=== PATIENT | female | born 2000 | race American Indian/Alaskan Native ===

== ENCOUNTER 2019-10-25 21:53 | Emergency (ER) | payer SELFPAY ==
[2019-10-25 22:07] VITALS: BP 121/63
[2019-10-26] MEDS ORDERED: ACETAMINOPHEN 500 MG TAB PO ONE (05:22)
--- NOTE | 2019-10-26 05:27 | Emergency Department Report ---
- General Chief complaint: Skin/Abscess/Foreign Body Stated complaint: FOREIGN BODY RIGHT EAR Time Seen by Provider: 10/26/19 05:20 Source: patient Mode of arrival: Ambulatory Limitations: No Limitations - History of Present Illness Initial comments: Patient is a 19-year-old -[place] female who presents for foreign body to right earlobe. States she got a new earring piercing in 3 days ago began having pain and swelling 2 days ago and swelling causing earring post to be lodged in her earlobe. Requesting removal. There is no fevers or chills no tinnitus no decreased hearing. There is some mild ear swelling no drainage noted. Patient states pain is rated at 5/10 exacerbated by palpation. Pain is relieved by nothing tried. - Related Data Previous Rx's Medication Instructions Recorded Last Taken Type Cephalexin [Keflex] 500 mg PO BID #40 capsule 02/26/18 Unknown Rx Ibuprofen [Motrin 600 MG tab] 600 mg PO Q8H #15 tablet 02/26/18 Unknown Rx Acetaminophen [Tylenol] 650 mg PO QID PRN #30 capsule 10/26/19 Unknown Rx Mupirocin [Bactroban 2% OINT] 1 applic TP TID #1 tube 10/26/19 Unknown Rx Allergies Allergy/AdvReac Type Severity Reaction Status Date / Time No Known Allergies Allergy Verified 02/26/18 05:42 Abscess Boil HPI - HPI Chief Complaint: Skin/Abscess/Foreign Body Stated Complaint: FOREIGN BODY RIGHT EAR Time Seen by Provider: 10/26/19 05:20 Home Medications: Previous Rx's Medication Instructions Recorded Last Taken Type Cephalexin [Keflex] 500 mg PO BID #40 capsule 02/26/18 Unknown Rx Ibuprofen [Motrin 600 MG tab] 600 mg PO Q8H #15 tablet 02/26/18 Unknown Rx Acetaminophen [Tylenol] 650 mg PO QID PRN #30 capsule 10/26/19 Unknown Rx Mupirocin [Bactroban 2% OINT] 1 applic TP TID #1 tube 10/26/19 Unknown Rx Allergies/Adverse Reactions: Allergies Allergy/AdvReac Type Severity Reaction Status Date / Time No Known Allergies Allergy Verified 02/26/18 05:42 ED Review of Systems ROS: Stated complaint: FOREIGN BODY RIGHT EAR Other details as noted in HPI Constitutional: denies: chills, fever Eyes: denies: eye pain, eye discharge, vision change ENT: other (Earlobe pain and swelling right) Respiratory: denies: cough, shortness of breath, wheezing Cardiovascular: denies: chest pain, palpitations Endocrine: no symptoms reported Gastrointestinal: denies: abdominal pain, nausea, diarrhea Genitourinary: denies: urgency, dysuria, discharge Musculoskeletal: denies: back pain, joint swelling, arthralgia Skin: other (right ear lobe as above ). denies: rash, lesions Neurological: denies: headache, weakness, paresthesias Psychiatric: denies: anxiety, depression Hematological/Lymphatic: denies: easy bleeding, easy bruising ED Past Medical Hx - Past Medical History Previous Medical History?: No - Surgical History Past Surgical History?: No - Social History Smoking Status: Former Smoker Substance Use Type: None - Medications Home Medications: Home Medications Medication Instructions Recorded Confirmed Last Taken Type Cephalexin [Keflex] 500 mg PO BID #40 capsule 02/26/18 Unknown Rx Ibuprofen [Motrin 600 MG tab] 600 mg PO Q8H #15 tablet 02/26/18 Unknown Rx Acetaminophen [Tylenol] 650 mg PO QID PRN #30 capsule 10/26/19 Unknown Rx Mupirocin [Bactroban 2% OINT] 1 applic TP TID #1 tube 10/26/19 Unknown Rx ED Physical Exam - General Limitations: No Limitations General appearance: alert, in no apparent distress - Head Head exam: Present: normocephalic, normal inspection - Eye Eye exam: Present: normal appearance - ENT ENT exam: Present: mucous membranes moist - Expanded ENT Exam Expanded Ear exam: Present: other (lobe swelling pain no fever no erythema no drainage ) - Neck Neck exam: Present: normal inspection, full ROM. Absent: tenderness, lymphadenopathy - Respiratory Respiratory exam: Present: normal lung sounds bilaterally - Cardiovascular Cardiovascular Exam: Present: regular rate, normal rhythm, normal heart sounds. Absent: systolic murmur, diastolic murmur, rubs, gallop - GI/Abdominal GI/Abdominal exam: Present: soft, normal bowel sounds - Rectal Rectal exam: Present: deferred - Extremities Exam Extremities exam: Present: normal inspection - Back Exam Back exam: Present: normal inspection - Neurological Exam Neurological exam: Present: alert, oriented X3, CN II-XII intact, normal gait - Psychiatric Psychiatric exam: Present: normal affect, normal mood - Skin Skin exam: Present: warm, dry, intact, normal color. Absent: rash ED Course Vital Signs 10/25/19 21:59 Temperature 98.2 F Pulse Rate 81 Respiratory 18 Rate Blood Pressure 121/63 O2 Sat by Pulse 100 Oximetry - Procedure Description Procedures done: Foreign body right earlobe as earring post. Site cleaned with alcohol swab post palpated and removed with 6 inch blunt forceps with moderate tension. There is minimal bleeding there was no drainage bleeding controlled via direct pressure wound cleaned with alcohol swab sterile dressing applied patient given wound care instructions patient verbalized agreement and understanding with same patient tolerated procedure with minimal distress ED Medical Decision Making - Medical Decision Making Foreign body right earlobe removed intact patient tolerated procedure with minimal distress given wound care instructions will follow-up with PCP in 2 to 3 days for wound check will return to ED should symptoms worsen patient verbalizes agreement and understanding with discharge plan DC to home in stable condition at this time Critical care attestation.: If time is entered above; I have spent that time in minutes in the direct care of this critically ill patient, excluding procedure time. ED Disposition Clinical Impression: Acute foreign body of right earlobe Qualifiers: Encounter type: initial encounter Qualified Code(s): T16.1XXA - Foreign body in right ear, initial encounter Disposition: DC-01 TO HOME OR SELFCARE Is pt being admited?: No Does the pt Need Aspirin: No Condition: Stable Instructions: Soft Tissue Foreign Body (ED) Prescriptions: Mupirocin [Bactroban 2% OINT] 1 applic TP TID #1 tube Acetaminophen [Tylenol] 650 mg PO QID PRN #30 capsule PRN Reason: pain Referrals: HANNY JACOBSEN MD [Staff Physician] - 3-5 Days Forms: Work/School Release Form(ED) Time of Disposition: 05:30
== END 2019-10-26 05:45 | disposition home or self-care (01) ==
LOC: ED 21:53
DX: T16.1XXA Foreign body in right ear, initial encounter (principal); X58.XXXA Exposure to other specified factors, initial encounter
CPT/HCPCS: 99282